=== PATIENT | male | born 1950 | race Caucasian/White ===

== ENCOUNTER 2017-04-20 07:18 | Emergency (ER) | payer OTHER, MEDICARE, BC ==
[~2017-04-20] VITALS: Ht 180.3 cm; Wt 91.0 kg
[~2017-04-20 07:18] MED LIST: ACTOS15 MG PO; ACULAR LS0.4 % OD; ALLOPURINOL300 MG PO; ASPIRIN LOW DOS81 M2 PO; ATORVASTATIN CA80 MG PO; AUGMENTIN500TAB PO; AUGMENTIN875TAB PO; BACTRIM DS1 TAB PO; COLCHICINE0.6 MG PO; CRESTOR20 MG PO; DICLOXACILL500 MG PO; FLEXERIL PO; FLONASE NASAL50 MCG; FLUARIX QUADRIV1 INJ IM; GLIPIZIDE5 MG OR; GLUCOPHAGE500 MG OR; HYDROCHLOROT12.5 MG PO; LANTUS SC; LANTUS SOLOSTAR SC; LANTUS100 MG/ML SC; LESCOL XL80 MG OR; LISINOP/HCTZ1 TA1 PO; LISINOPRIL20 MG PO; LOPRESSOR25 MG PO; LORTAB 7.5 OR; LORTAB 7.5-3251 TAB PO; LYRICA50 MG PO; LYRICA75 MG PO; MELOXICAM15 MG PO; METFORMIN850 MG PO; NOVOFINE XX; NOVOLOG SC; NOVOLOG100 IU/1 M SC; OMEPRAZOLE20 MG PO; PEN NEEDLE1 SC; PERCOCET 5/325M1 TAB PO; PRILOSEC20 MG PO; RANITIDINE HCL150 MG PO; RANITIDINE150 MG PO; TAM75CAP PO; ULTRAM50 M1 PO; VASOTEC5 MG OR; ZYRTEC10 MG PO
[2017-04-20 07:35] LABS: HEMATOCRIT 36.1 % (39.0-50.0); HEMOGLOBIN 12.1 g/dl (14.0-18.0); IMMATURE GRANULOCYTES 0.5 % (0.0-1.0); MEAN CORPUSCULAR HGB 30.2 pG CALC (26.0-32.0); MEAN CORPUSCULAR HGB CONC 33.5 g/L CALC (32.0-36.0); NEUT# 5.58 thou/uL (1.82-7.42); RED BLOOD COUNT 4.01 mill/uL (4.70-6.10); RED CELL DISTRI WIDTH 13.9 % (11.5-15.5)
[2017-04-20 08:07] LABS: ALKALINE PHOSPHATASE 127 u/l (38-126); ANION GAP 16 (6-22 (CALC)); BILIRUBIN, TOTAL 0.4 mg/dL (0.0-1.4); BUN 33 mg/dL (8-23); BUN/CREATININE RATIO 25 (12-20 (CALC)); CALCIUM 9.1 mg/dL (8.4-10.2); CARBON DIOXIDE 21 mmol/l (22-30); CHLORIDE 110 mmol/l (95-108); CREATININE 1.3 mg/dL (0.7-1.3); GFR 55 ML/MIN (>=60 (CALC)); GFR FOR AFR.AMER. > 60 ML/MIN (>=60 (CALC)); GLUCOSE 142 mg/dL (82-115); POTASSIUM 3.5 mmol/l (3.5-5.1); SGOT/AST 18 u/l (19-48); SGPT/ALT 32 u/l (11-66); SODIUM 144 mmol/l (137-146); TOTAL PROTEIN 6.5 g/dL (6.3-8.2)
[2017-04-20 10:03] LABS: MYOGLOBIN 83 ng/mL (0 - 121)
[2017-04-20] MEDS ORDERED: NAPROSYN500 MG PO (10:03)
[2017-04-20 10:08] VITALS: BP 174/79
== END 2017-04-20 10:30 | disposition home or self-care (01) | DRG 552 ==
LOC: ED 07:18
PROVIDERS: Emergency Medicine
DX: S16.1XXA Strain of muscle, fascia and tendon at neck level, initial encounter (principal); E10.649 Type 1 diabetes mellitus with hypoglycemia without coma; S09.90XA Unspecified injury of head, initial encounter; S33.9XXA Sprain of unspecified parts of lumbar spine and pelvis, initial encounter; R07.89 Other chest pain; Z79.4 Long term (current) use of insulin; Z79.84 Long term (current) use of oral hypoglycemic drugs; V53.5XXA Driver of pick-up truck or van injured in collision with car, pick-up truck or van in traffic accident, initial encounter; Y92.414 Local residential or business street as the place of occurrence of the external cause

== ENCOUNTER 2017-10-12 17:04 | Observation (INO) | payer MEDICARE, BC ==
[~2017-10-12] VITALS: Ht 180.3 cm; Wt 91.3 kg
[~2017-10-12 17:04] MED LIST changes: +NAPROSYN500 MG PO
[2017-10-12 17:11] VITALS: BP 129/63
[2017-10-12 17:49] LABS: HEMATOCRIT 45.4 % (39.0-50.0); IMMATURE GRANULOCYTES 0.3 % (0.0-1.0); MEAN CELL VOLUME 90.6 fL CALC (80.0-100.0); MEAN CORPUSCULAR HGB 29.9 pG CALC (26.0-32.0); NEUT# 13.77 thou/uL (1.82-7.42); RED BLOOD COUNT 5.01 mill/uL (4.70-6.10); RED CELL DISTRI WIDTH 13.3 % (11.5-15.5)
--- NOTE | 2017-10-12 18:00 | NUR ---
SPOUSE IN ROOM, REPORTED PT HAD CATARACT SURGERY TO BOTH EYES IN JUNE 2017. HOSPITALISED IN [place] FROM WEDNESDAY-WEDNESDAY (10/08/17-10/10/17) DUE TO SEVERS VOMITTING LASTING UP TO 4 HOURS. SEEN BY MUSICIAN INSTRUMENTAL ON 10/11/17 THEN BY RETINAL SPECIALIST TODAY WHERE HE RECEIVED SHOTS OF STEROIDS IN BOTH EYES. BEGAN VOMITTING AGAIN THIS MORNING FOR MANY HOURS THEN WENT DR JACKSON WHO ADMITTED HIM HERE.
[2017-10-12 18:04] LABS: CALCIUM 9.5 mg/dL (8.4-10.2); CREATININE 1.9 mg/dL (0.7-1.3); POTASSIUM 4.4 mmol/l (3.5-5.1)
--- NOTE | 2017-10-12 18:13 | NUR ---
PT ARRIVED ON UNIT @ 1711, ALERT AND ORIENTED X2, DENIES PAIN AT THIS TIME, ORIENTED TO ROOM AND CALL [facility]. HAS EYES CLOSED STATING HE HAD SHOTS RECENTLY IN BOTH EYES AND HE HAS DISCOMFORT OPENING THEM. DENIES NAUSEA AT THIS TIME. TELE MONITOR IN PLACE, ORIENTED TO ROOM AND CALL [facility]. JUST LEFT UNIT FOR PROCEDURE.
--- NOTE | 2017-10-12 19:30 | NUR ---
PATIENT RESTING IN BED AT THIS TIME WITH LIGHTS DIMMED BECAUSE HE IS VERY SENSATIVE TO LIGHT. EYES CLOSED FOR COMFORT. PATIENT IS AWAKE ALERT AND ORIENTEDX3. FAMILY AT BEDSIDE. PATIENT WITH IV SITE TO LEFT WRIST WITH IVF PATENT AND INFUSING AT 150CC/HR. SITE APPEARS HEALTHY AT THIS TIME. URINE SPEC OBTAINED AND SENT TO LAB-URINE IS YELLOW AND CLEAR. PATIENT DENIES ANY NAUSEA OR PAIN AT THIS TIME. SAFETY PRECAUTIONS REINFORCED. CALL LIGHT IN REACH. WILL CONT TO MONITOR.
[2017-10-12 19:45] VITALS: BP 154/70
--- NOTE | 2017-10-12 20:36 | NUR ---
DR JACKSON CALLED TO INQUIRE ABOUR PT, INFORMED OF LAB RESULTS, ADVISED STAFF TO CALL HIM ON CELL PHONE ANYTIME DURING NIGHT NEEDED, [facility] NOTIFIED.
[2017-10-12 20:57] LABS: URINE BILIRUBIN - DIPSTICK NEGATIVE (NEGATIVE); URINE BLOOD DIPSTICK NEGATIVE (NEGATIVE); URINE COLOR YELLOW; URINE GLUCOSE - DIPSTICK >=1000 mg/dL (NEGATIVE); URINE KETONE NEGATIVE (NEGATIVE); URINE LEUK ESTERASE NEGATIVE (NEGATIVE); URINE NITRITE - DIPSTICK NEGATIVE (Negative); URINE PROTEIN - DIPSTICK 100 mg/dL (NEG-TRACE); URINE SPECIFIC GRAVITY >=1.030; URINE UROBILINOGEN - DIPSTICK 0.2 E.U./dL (0.2)
[2017-10-12 21:03] LABS: URINE CLARITY CLEAR
[2017-10-12 21:10] LABS: URINE RBC 0-2 RBC/hpf (0-5); URINE WBC 0-2 WBC/hpf (0-5)
--- NOTE | 2017-10-13 00:10 | NUR ---
PATIENT WITH TEMP OF 100.5-DR. CASTILLO CALLED AND ORDERS RECIEVED. WILL CONT TO MONITOR.
[2017-10-13 00:16] VITALS: BP 129/68
--- NOTE | 2017-10-13 00:30 | NUR ---
PATIENT WITH TEMP OF 100.5-DR.NATHAN [id number] AND ORDERS RECIEVED. BLOOD CULTURES WERE DRAWN AND TYLENOL 650MG PO GIVEN. ROCEPHIN GM1 WILL BE GIVEN WHEN BROUGHT TO THE FLOOR BY NSG DOLL DRESSER. PATIENT DENIES ANY NAUSEA AT THIS TIME. CALL LIGHT IN REACH. DAUGHTER AT BEDSIDE. WILL CONT TO MONITOR.
--- NOTE | 2017-10-13 01:00 | NUR ---
ROCEPHIN INFUSING ORDERED. IVF PATENT AT 100CC/HR VIA LEFT WRIST ORDERED. NO COMPLAINTS AT THIS TIME. NO N/V, NO PAIN. NO CHANGE IN VISION. CALL LIGHT IN REACH. WILL CONT TO MONITOR.
--- NOTE | 2017-10-13 02:25 | NUR ---
TEMP 99.7 AT THIS TIME. PATIENT APPEARS SLEEPING AT THIS TIME WITH EYES CLOSED. DAUGHTER AT BEDSIDE. CALL LIGHT IN REACH. WILL CONT TO MONITOR.
--- NOTE | 2017-10-13 03:44 | NUR ---
APPEARS SLEEPING WITH HOB ELEVATED AND DAUGHTER SLEEPING ON SOFA. IVF PATENT AND INFUSING AT 100CC/HR. CALL LIGHT IN REACH. WILL CONT TO MONITOR.
[2017-10-13 05:57] LABS: HEMATOCRIT 36.6 % (39.0-50.0); HEMOGLOBIN 12.1 g/dl (14.0-18.0); IMMATURE GRANULOCYTES 0.5 % (0.0-1.0); MEAN CELL VOLUME 90.8 fL CALC (80.0-100.0); MEAN CORPUSCULAR HGB CONC 33.1 g/L CALC (32.0-36.0); NEUT# 6.15 thou/uL (1.82-7.42); RED BLOOD COUNT 4.03 mill/uL (4.70-6.10); RED CELL DISTRI WIDTH 13.2 % (11.5-15.5)
[2017-10-13 06:06] LABS: ALBUMIN 2.8 g/dL (3.2-5.0); BILIRUBIN, TOTAL 0.7 mg/dL (0.0-1.4); CALCIUM 8.4 mg/dL (8.4-10.2); CREATININE 1.6 mg/dL (0.7-1.3); POTASSIUM 3.8 mmol/l (3.5-5.1); TOTAL PROTEIN 4.9 g/dL (6.3-8.2)
[2017-10-13 06:22] VITALS: BP 158/65
[2017-10-13 08:00] VITALS: BP 155/75
--- NOTE | 2017-10-13 09:10 | NUR ---
PT.UPRIGHT IN BED WITH FEET ELEVATED AND DAUGHTER AT BEDSIDE. PT.MEDICATED MORNING ORDERS PROVIDE AND V/S ASSESSED. DENIES ANY OTHER NEEDS AT THIS TIME, POC DISCUSSED WITH FAMILY AND PT.
[2017-10-13] MEDS ORDERED: GINSENG100 MG (09:50)
[2017-10-13] MEDS ORDERED: FISH OIL1000 MG (09:50)
[2017-10-13 11:20] VITALS: BP 141/74
--- NOTE | 2017-10-13 14:30 | NUR ---
PT. IS PROPPED UP IN BED WITH EYES CLOSED, AT BEDSIDE. PT.AWOKE AND RESPONDED TO MY ENTERING ROOM. PT.MEDICATED ORDERS PROVIDE AND POC DISCUSSED WITH PT. AND FAMILY. DENIES ANY OTHER NEEDS AT THIS TIME.
--- NOTE | 2017-10-13 16:27 | NUR ---
Talked to patient today about his medications. Patient feels better today. Discussed side effects of zofran and patient reported no side effects with this medication. discussed about signs and symptoms of hypoglycemia. Patient reported that he does not have these symptoms when on insulin. Patient does not have other questions to the pharmacy at this time.
[2017-10-13 16:50] VITALS: BP 146/64
--- NOTE | 2017-10-13 18:56 | NUR ---
PT.OFF THE FLOOR VIA WHEELCHAIR ACCOMPANIED BY STAFF. PT.DISCHARGED IN GOOD CONDITION. LAW OFFICE ASSISTANT AND IV REMOVED INTACT.
== END 2017-10-13 18:49 | disposition home or self-care (01) ==
LOC: MS2 17:04
PROVIDERS: ADMIT Internal Medicine Geriatric Medicine; ATTEND Internal Medicine Geriatric Medicine
DX: E86.0 Dehydration (principal); R11.2 Nausea with vomiting, unspecified; E11.39 Type 2 diabetes mellitus with other diabetic ophthalmic complication; H40.9 Unspecified glaucoma; H47.11 Papilledema associated with increased intracranial pressure; E11.65 Type 2 diabetes mellitus with hyperglycemia; I25.10 Atherosclerotic heart disease of native coronary artery without angina pectoris; I10 Essential (primary) hypertension; K21.9 Gastro-esophageal reflux disease without esophagitis; F41.9 Anxiety disorder, unspecified; M19.90 Unspecified osteoarthritis, unspecified site; R09.89 Other specified symptoms and signs involving the circulatory and respiratory systems; Z86.73 Personal history of transient ischemic attack (TIA), and cerebral infarction without residual deficits

== ENCOUNTER → 2018-06-24 | Outpatient (REF) | payer MEDICARE, BC ==
[~2018-06-24] MED LIST changes: +FISH OIL1000 MG; +GINSENG100 MG
== END | disposition home or self-care (01) ==
LOC: MRI 12:38 → LAB 12:38 → MRI 13:00
PROVIDERS: ATTEND Internal Medicine Geriatric Medicine
DX: M10.9 Gout, unspecified (principal); I63.9 Cerebral infarction, unspecified

== ENCOUNTER 2019-04-08 17:49 | Emergency (ER) | payer MEDICARE, BC ==
[~2019-04-08] VITALS: Ht 180.3 cm; Wt 90.9 kg
[2019-04-08 18:30] LABS: HEMATOCRIT 37.7 % (39.0-50.0); HEMOGLOBIN 12.2 g/dl (14.0-18.0); IMMATURE GRANULOCYTES 0.8 % (0.0-5.0); MEAN CELL VOLUME 95.4 fL CALC (80.0-100.0); MEAN CORPUSCULAR HGB 30.9 pG CALC (26.0-32.0); MEAN CORPUSCULAR HGB CONC 32.4 g/L CALC (32.0-36.0); NEUT# 9.59 thou/uL (1.82-7.42); RED BLOOD COUNT 3.95 mill/uL (4.70-6.10); RED CELL DISTRI WIDTH 14.3 % (11.5-15.5)
[2019-04-08] MEDS ORDERED: METOPROL TAR25 MG PO (18:45)
[2019-04-08] MEDS ORDERED: JANUVIA100 MG PO (18:45)
[2019-04-08] MEDS ORDERED: FARXIGA10 MG PO (18:46)
[2019-04-08] MEDS ORDERED: LISINOPRIL20 MG PO (18:47)
[2019-04-08] MEDS ORDERED: CLOPIDOGREL75 MG PO (18:47)
[2019-04-08] MEDS ORDERED: ZYRTEC10 MG PO (18:48)
[2019-04-08] MEDS ORDERED: LYRICA25 MG PO (18:49)
[2019-04-08 18:51] LABS: ALBUMIN 4.3 g/dL (3.2-5.0); BILIRUBIN, TOTAL 0.8 mg/dL (0.0-1.4); CREATININE 1.7 mg/dL (0.7-1.3); TOTAL PROTEIN 7.1 g/dL (6.3-8.2)
[2019-04-08] MEDS ORDERED: LANTUS100 UNIT/M SC (18:51)
[2019-04-08 18:55] LABS: POTASSIUM 5.8 mmol/l (3.5-5.1)
[2019-04-08 19:53] LABS: C. DIFFICILE TOXIN A&B NEGATIVE (NEGATIVE)
[2019-04-08] MEDS ORDERED: CIPROFLOXACN500 MG PO (20:10)
[2019-04-08] MEDS ORDERED: LOMOTIL2.5 MG PO (20:10)
[2019-04-08 20:15] VITALS: BP 112/58
== END 2019-04-08 20:25 | disposition home or self-care (01) ==
LOC: ED 17:49
PROVIDERS: Family Medicine
DX: K52.9 Noninfective gastroenteritis and colitis, unspecified (principal); E11.9 Type 2 diabetes mellitus without complications; I10 Essential (primary) hypertension; Z79.4 Long term (current) use of insulin

== ENCOUNTER 2024-04-07 06:40 | Observation (INO) | payer MEDICARE, BC ==
[2024-04-07] VITALS (19 sets, daily range): BP systolic 118–162; BP diastolic 36–73
[~2024-04-07] VITALS: Ht 180.3 cm; Wt 70.0 kg
[~2024-04-07 06:40] MED LIST changes: +CIPROFLOXACN500 MG PO; +CLOPIDOGREL75 MG PO; +FARXIGA10 MG PO; +JANUVIA100 MG PO; +LANTUS100 UNIT SC; +LOMOTIL2.5 MG PO; +LYRICA25 MG PO; +METOPROL TAR25 MG PO
[2024-04-07] MEDS ORDERED: SODIUM CHLORIDE 0.9% 1,000 ML IV ONE (06:55)
[2024-04-07] MEDS ORDERED: PLAVIX75 MG PO (07:00)
[2024-04-07] MEDS ORDERED: OZEMPIC2 MG SC (07:00)
[2024-04-07 07:21] LABS: BASO% 0.2 % (0-3); EOS% 0.5 % (0-8); HEMATOCRIT 38.3 % (39.0-50.0); HEMOGLOBIN 12.4 g/dl (14.0-18.0); IMMATURE GRANULOCYTES 0.4 % (0.0-5.0); LYMPH% 6.5 % (15-41); MEAN CELL VOLUME 98.2 fL CALC (80.0-100.0); MEAN CORPUSCULAR HGB 31.8 pG CALC (26.0-32.0); MEAN CORPUSCULAR HGB CONC 32.4 g/dL CAL (32.0-36.0); MONO% 8.8 % (2-13); NEUT# 9.22 thou/uL (1.82-7.42); NEUT% 83.6 % (42-76); RED BLOOD COUNT 3.9 mill/uL (4.70-6.10); RED CELL DISTRI WIDTH 13.7 % (11.5-15.5)
[2024-04-07 07:40] LABS: ALBUMIN 3.5 g/dL (3.2-5.0); ALKALINE PHOSPHATASE 139 u/l (38-126); CHLORIDE 111 mmol/l (95-108); CREATININE 1.8 mg/dL (0.7-1.3); ESTIMATED GFR 39 ML/MIN (>=90 (CALC)); POTASSIUM 4.2 mmol/l (3.5-5.1); SGOT/AST 23 u/l (19-48); SODIUM 138 mmol/l (137-146)
[2024-04-07 07:45] LABS: URINE BILIRUBIN - DIPSTICK Negative (NEGATIVE); URINE BLOOD DIPSTICK Trace-lysed (NEGATIVE); URINE GLUCOSE - DIPSTICK >=1000 mg/dL (NEGATIVE); URINE KETONE Negative (NEGATIVE); URINE LEUK ESTERASE Negative (NEGATIVE); URINE NITRITE - DIPSTICK Negative (Negative); URINE PH 5.5 (4.5-8.0); URINE PROTEIN - DIPSTICK 30 mg/dL (NEG-TRACE); URINE UROBILINOGEN - DIPSTICK 0.2 E.U./dL (0.2)
[2024-04-07 07:47] LABS: URINE COLOR Yellow
[2024-04-07 07:50] LABS: ANION GAP 9 (6-22 (CALC)); BILIRUBIN, TOTAL 0.9 mg/dL (0.2-1.3); BUN 53 mg/dL (8-23); BUN/CREATININE RATIO 29 (12-20 (CALC)); CARBON DIOXIDE 22 mmol/l (22-30)
[2024-04-07 07:59] LABS: URINE RBC 0-2 RBC/hpf (0-5)
[2024-04-07] MEDS ORDERED: AZITHROMYCIN 500 MG in SODIUM CHLORIDE 0.9% 250 ML IV ONE (09:25)
[2024-04-07] MEDS ORDERED: ACETAMINOPHEN 325 MG/TAB PO PRN (12:20)
[2024-04-07] MEDS ORDERED: MAGNESIUM HYDROXIDE 30 ML UDC PO PRN (12:20)
[2024-04-07] MEDS ORDERED: SODIUM CHLORIDE 0.9% 1,000 ML IV PRN (12:20)
[2024-04-07] MEDS ORDERED: Heparin SODIUM (Porcine) 5,000 UNITS/ML SDV SC SCH (14:00)
[2024-04-07] MEDS ORDERED: AZITHROMYCIN 500 MG in SODIUM CHLORIDE 0.9% 250 ML IV SCH (14:00)
[2024-04-07] MEDS ORDERED: DEXTROSE 250 ML IV PRN (15:30)
[2024-04-07] MEDS ORDERED: METFORMIN HCL1000 MG PO (15:45)
[2024-04-07] MEDS ORDERED: ALLOPURINOL100 MG PO (15:46)
[2024-04-07] MEDS ORDERED: LYRICA75 MG PO (15:47)
[2024-04-07] MEDS ORDERED: ASPIRIN EC 81 MG/TAB PO SCH (16:00)
[2024-04-07] MEDS ORDERED: CLOPIDOGREL BISULFATE 75 MG/TAB TAB PO SCH (16:30)
[2024-04-07] MEDS ORDERED: LISINOPRIL 20 MG/TAB PO SCH (16:30)
[2024-04-07] MEDS ORDERED: INSULIN LISPRO 100 UNITS/ML ML SC SCH (17:00)
[2024-04-07] MEDS ORDERED: BRIMONIDINE0.2 % OU (17:13)
[2024-04-07] MEDS ORDERED: [UNRECOGNIZED DRUG - OTHER] OU (17:17)
[2024-04-07] MEDS ORDERED: hydrALAZINE HCL 20 MG/ML VIAL(1 ML) IV PRN (20:40)
[2024-04-08] VITALS (9 sets, daily range): BP systolic 125–186; BP diastolic 54–80
[2024-04-08 04:45] LABS: BASO% 0.1 % (0-3); EOS% 0.2 % (0-8); HEMATOCRIT 37.9 % (39.0-50.0); HEMOGLOBIN 12.8 g/dl (14.0-18.0); IMMATURE GRANULOCYTES 0.4 % (0.0-5.0); LYMPH% 5.5 % (15-41); MEAN CELL VOLUME 97.7 fL CALC (80.0-100.0); MEAN CORPUSCULAR HGB CONC 33.8 g/dL CAL (32.0-36.0); MONO% 9.9 % (2-13); NEUT# 8.64 thou/uL (1.82-7.42); NEUT% 83.9 % (42-76); RED BLOOD COUNT 3.88 mill/uL (4.70-6.10); RED CELL DISTRI WIDTH 13.5 % (11.5-15.5)
[2024-04-08 05:01] LABS: ALBUMIN 3.3 g/dL (3.2-5.0); CREATININE 1.1 mg/dL (0.7-1.3); MAGNESIUM 1.9 mg/dL (1.6-2.3); POTASSIUM 4.5 mmol/l (3.5-5.1); TOTAL PROTEIN 5.8 g/dL (6.3-8.2)
[2024-04-08] MEDS ORDERED: KETOROLAC TROMETHAMINE 15 MG/ML SDV IV PRN (11:40)
[2024-04-08] MEDS ORDERED: GUAIFENESIN 600 MG/TAB PO SCH (12:00)
[2024-04-08] MEDS ORDERED: CARVEDILOL 6.25 MG/TAB PO SCH (12:00)
[2024-04-08] MEDS ORDERED: DEXAMETHASONE SOD. PHOSPHATE 10 MG/ML VIAL IV SCH (12:00)
[2024-04-08] MEDS ORDERED: LABETALOL HCL 20 MG/ 4 ML CARTRG IV PRN (12:00)
[2024-04-08] MEDS ORDERED: ALBUTEROL SULFATE 8 GM INH IN PRN (12:30)
[2024-04-08] MEDS ORDERED: TIOTROPIUM BROMIDE MONOHYDRATE 2.5 MCG/ACT 4 GM INH IN SCH (12:30)
[2024-04-08] MEDS ORDERED: CEFEPIME HYDROCHLORIDE 2 GM in SODIUM CHLORIDE 0.9% 100 ML IV SCH (14:00)
[2024-04-09] VITALS (7 sets, daily range): BP systolic 139–158; BP diastolic 66–71
[2024-04-09 04:58] LABS: BASO% 0.1 % (0-3); HEMATOCRIT 33.8 % (39.0-50.0); IMMATURE GRANULOCYTES 0.7 % (0.0-5.0); LYMPH% 5.5 % (15-41); MONO% 3.1 % (2-13); NEUT# 7.54 thou/uL (1.82-7.42); NEUT% 90.6 % (42-76); RED BLOOD COUNT 3.38 mill/uL (4.70-6.10); RED CELL DISTRI WIDTH 13.4 % (11.5-15.5)
[2024-04-09 05:04] LABS: BILIRUBIN, TOTAL 0.7 mg/dL (0.2-1.3); CREATININE 1.1 mg/dL (0.7-1.3); MAGNESIUM 2.1 mg/dL (1.6-2.3); POTASSIUM 4.9 mmol/l (3.5-5.1)
[2024-04-09 05:05] LABS: ALBUMIN 2.6 g/dL (3.2-5.0)
[2024-04-09 05:19] LABS: HEMOGLOBIN 10.8 g/dl (14.0-18.0)
[2024-04-09] MEDS ORDERED: DEXTROSE 250 ML IV PRN (06:50)
[2024-04-09] MEDS ORDERED: INSULIN DETEMIR 100 UNITS/ML SC SCH (09:00)
[2024-04-09 12:48] LABS: ALBUMIN 2.8 g/dL (3.2-5.0); BILIRUBIN, TOTAL 0.6 mg/dL (0.2-1.3); CREATININE 1.1 mg/dL (0.7-1.3); POTASSIUM 4.6 mmol/l (3.5-5.1); TOTAL PROTEIN 5.3 g/dL (6.3-8.2)
[2024-04-10] VITALS: BP 145/67
[2024-04-10 04:00] VITALS: BP 161/66
[2024-04-10 04:53] VITALS: BP 161/66
[2024-04-10 04:59] LABS: HEMATOCRIT 29.1 % (39.0-50.0); HEMOGLOBIN 9.8 g/dl (14.0-18.0); IMMATURE GRANULOCYTES 1.1 % (0.0-5.0); LYMPH% 3.8 % (15-41); MEAN CORPUSCULAR HGB 32.7 pG CALC (26.0-32.0); MEAN CORPUSCULAR HGB CONC 33.7 g/dL CAL (32.0-36.0); MONO% 3.3 % (2-13); NEUT# 12.83 thou/uL (1.82-7.42); NEUT% 91.8 % (42-76); RED CELL DISTRI WIDTH 13.4 % (11.5-15.5)
[2024-04-10 05:19] LABS: ALBUMIN 2.4 g/dL (3.2-5.0); BILIRUBIN, TOTAL 0.5 mg/dL (0.2-1.3); CREATININE 0.9 mg/dL (0.7-1.3); POTASSIUM 4.3 mmol/l (3.5-5.1); TOTAL PROTEIN 4.7 g/dL (6.3-8.2)
[2024-04-10 07:05] VITALS: BP 177/70
[2024-04-10 07:07] VITALS: BP 176/66
[2024-04-10] MEDS ORDERED: cefTRIAXone SODIUM 2 GM in SODIUM CHLORIDE 0.9% 100 ML IV SCH (09:00)
[2024-04-10] MEDS ORDERED: DOXYCYCLINE100 MG PO (09:43)
[2024-04-10 10:32] VITALS: BP 158/68
== END 2024-04-10 11:54 | disposition home or self-care (01) ==
LOC: ED 06:40 → ED-I 07:20 → ED 09:23 → MS2 09:24
PROVIDERS: Family Medicine; Nurse Practitioner Family; Student in an Organized Health Care Education/Training Program; ADMIT Internal Medicine; ATTEND Internal Medicine
DX: A41.89 Other specified sepsis (principal); U07.1 COVID-19; R65.20 Severe sepsis without septic shock; G93.41 Metabolic encephalopathy; N17.9 Acute kidney failure, unspecified; E11.65 Type 2 diabetes mellitus with hyperglycemia; I10 Essential (primary) hypertension; E11.40 Type 2 diabetes mellitus with diabetic neuropathy, unspecified; Z79.84 Long term (current) use of oral hypoglycemic drugs; Z79.4 Long term (current) use of insulin
CPT/HCPCS: J0692

== ENCOUNTER 2024-10-10 19:29 | Emergency (ER) | payer MEDICARE, BC ==
[2024-10-10] VITALS (9 sets, daily range): BP systolic 162–203; BP diastolic 58–84
[~2024-10-10] VITALS: Ht 180.3 cm; Wt 74.0 kg
[~2024-10-10 19:29] MED LIST changes: +ALLOPURINOL100 MG PO; +BRIMONIDINE0.2 % OU; +DOXYCYCLINE100 MG PO; +METFORMIN HCL1000 MG PO; +OZEMPIC2 MG SC; +PLAVIX75 MG PO; +[UNRECOGNIZED DRUG - OTHER] OU
[2024-10-10 20:20] LABS: BASO% 0.6 % (0-3); EOS% 7.5 % (0-8); HEMATOCRIT 29.7 % (39.0-50.0); HEMOGLOBIN 9.4 g/dl (14.0-18.0); IMMATURE GRANULOCYTES 0.1 % (0.0-5.0); MEAN CELL VOLUME 102.8 fL CALC (80.0-100.0); MEAN CORPUSCULAR HGB 32.5 pG CALC (26.0-32.0); MEAN CORPUSCULAR HGB CONC 31.6 g/dL CAL (32.0-36.0); MONO% 5.7 % (2-13); NEUT# 4.88 thou/uL (1.82-7.42); NEUT% 73.1 % (42-76); RED BLOOD COUNT 2.89 mill/uL (4.70-6.10); RED CELL DISTRI WIDTH 13.9 % (11.5-15.5)
[2024-10-10] MEDS ORDERED: FUROSEMIDE20 MG PO (20:23)
[2024-10-10] MEDS ORDERED: KLOR-CON M1010 MEQ PO (20:25)
[2024-10-10] MEDS ORDERED: ACID CONTROL MA20 MG PO (20:28)
[2024-10-10] MEDS ORDERED: NOVOLOG100 UNIT SC (20:33)
[2024-10-10] MEDS ORDERED: FUROSEMIDE 40 MG/4 ML SDV IV ONE (20:35)
[2024-10-10 20:36] LABS: ALBUMIN 3.3 g/dL (3.2-5.0); CREATININE 1.2 mg/dL (0.7-1.3); POTASSIUM 4.2 mmol/l (3.5-5.1); TOTAL PROTEIN 5.9 g/dL (6.3-8.2)
[2024-10-10 20:37] LABS: BILIRUBIN, TOTAL 0.8 mg/dL (0.2-1.3)
[2024-10-10] MEDS ORDERED: hydrALAZINE HCL 20 MG/ML VIAL(1 ML) IV ONE (21:50)
== END 2024-10-10 23:43 | disposition home or self-care (01) ==
LOC: ED 19:29
PROVIDERS: Family Medicine
DX: I11.0 Hypertensive heart disease with heart failure (principal); I50.9 Heart failure, unspecified; I25.10 Atherosclerotic heart disease of native coronary artery without angina pectoris; E11.40 Type 2 diabetes mellitus with diabetic neuropathy, unspecified; Z95.5 Presence of coronary angioplasty implant and graft; Z79.4 Long term (current) use of insulin
CPT/HCPCS: J0360; J1940; Q9967